=== PATIENT | female | born 1990 | race Caucasian/White ===

== ENCOUNTER 2021-05-01 20:57 | Emergency (ER) | payer MEDICAID ==
[~2021-05-01] VITALS: Ht 160 cm; Wt 68.2 kg
[2021-05-01 23:41] VITALS: BP 129/87; PULSE 77; TEMP 97.8
== END 2021-05-01 23:41 | disposition home or self-care (01) ==
LOC: COL.ER 20:57
DX: R53.81 Other malaise (principal)